=== PATIENT | female | born 1930 | race Caucasian/White ===

== ENCOUNTER 2019-04-08 13:48 | Outpatient (CLI) | payer MEDICARE ==
[~2019-04-08 13:48] MED LIST: ALLOPURINOL100 MG PO; ANTIVERT 25MG25 MG PO; COUMADIN3 MG PO; FUROSEMIDE40 MG PO; KAYEXALATE15 GM/60 M PO; LIPITOR 10MG10 MG PO; LIPOFLAVONOID PO; LOVENOX100 MG/ML SC; SYNTHROID0.1 MG PO; WARFARIN2 MG PO; ZEMPLAR1 MCG PO
[2019-04-08 14:37] LABS: HEMATOCRIT 29.1 % (37.0-47.0)
[2019-04-08 15:32] VITALS: BP 124/42; PULSE 80; TEMP 98.1
[2019-04-08] MEDS ORDERED: LASIX 20MG TABL20 MG PO (15:39)
[2019-04-08] MEDS ORDERED: SYNTHROID 0.10.15 MG PO (15:39)
[2019-04-08] MEDS ORDERED: ZEMPLAR2 MCG PO (15:40)
[2019-04-08] MEDS ORDERED: LIP PO (15:41)
[2019-04-08] MEDS ORDERED: ANTIVERT 25MG25 MG PO (15:42)
[2019-04-08] MEDS ORDERED: ELIQUIS 2.5 PO (15:51)
[2019-04-08] MEDS ORDERED: NATURAL IRON65 MG (15:52)
[2019-04-08] MEDS ORDERED: ZYLOPRIM 100MG100 MG PO (15:52)
[2019-04-08] MEDS ORDERED: TURMERIC500 MG PO (15:53)
== END 2019-04-08 16:30 | disposition home or self-care (01) ==
LOC: EUO 13:48
PROVIDERS: Internal Medicine Nephrology
DX: N18.4 Chronic kidney disease, stage 4 (severe) (principal); D63.1 Anemia in chronic kidney disease
CPT/HCPCS: J0881

== ENCOUNTER 2019-05-06 09:46 | Outpatient (CLI) | payer MEDICARE ==
[~2019-05-06] VITALS: Ht 157.5 cm; Wt 64.0 kg
[~2019-05-06 09:46] MED LIST changes: +ELIQUIS 2.5 PO; +LASIX 20MG TABL20 MG PO; +LIP PO; +NATURAL IRON65 MG; +SYNTHROID 0.10.15 MG PO; +TURMERIC500 MG PO; +ZEMPLAR2 MCG PO; +ZYLOPRIM 100MG100 MG PO
[2019-05-06 10:03] VITALS: BP 130/65; PULSE 88; TEMP 97.6
[2019-05-06 10:19] LABS: HEMATOCRIT 31.2 % (37.0-47.0); HEMOGLOBIN 9.6 g/dl (12.5-16.0)
== END 2019-05-06 11:00 | disposition home or self-care (01) ==
LOC: EUO 09:46
PROVIDERS: Internal Medicine Nephrology
DX: N18.4 Chronic kidney disease, stage 4 (severe) (principal); D63.1 Anemia in chronic kidney disease; Z79.899 Other long term (current) drug therapy
CPT/HCPCS: J0881

== ENCOUNTER 2019-06-03 10:24 | Outpatient (CLI) | payer MEDICARE ==
[~2019-06-03] VITALS: Ht 157.5 cm; Wt 76.0 kg
[2019-06-03 11:29] LABS: HEMATOCRIT 32.4 % (37.0-47.0)
[2019-06-03 11:57] VITALS: BP 119/80; PULSE 95; TEMP 97.9
== END 2019-06-03 12:45 | disposition home or self-care (01) ==
LOC: EUO 10:24
PROVIDERS: Internal Medicine Nephrology
DX: N18.4 Chronic kidney disease, stage 4 (severe) (principal); D63.1 Anemia in chronic kidney disease
CPT/HCPCS: J0881

== ENCOUNTER 2019-07-06 15:57 | Inpatient (IN) | payer MEDICARE ==
[~2019-07-06] VITALS: Ht 157.5 cm; Wt 66.2 kg
[2019-07-06] MEDS ORDERED: SYNTHROID0.125 MG/T PO (17:28)
[2019-07-06] MEDS ORDERED: LASIX 40MG TABL40 MG PO ×3 (17:30→17:31)
--- NOTE | 2019-07-06 18:17 | NUR ---
Patient arrived to floor a direct admit from Dr. Calderon office. Arrived via private vehicle accompanied by daughter. Was assisted to bed with one assist. Dr. Calderon called and notified that patient was here, received orders, med rec complete and ready for review. Daugher will bring 2 medications from home tomorrow. Call light and personal items are within reach.
[2019-07-06 18:49] LABS: BASO % 0.2 % (0.0-2.0); EOS # 0.4 (0.0-0.7); EOS % 6.3 % (0-4.0); GRAN # 4.3 (1.4-6.5); GRAN % 72.5 % (42.2-75.2); LYMPH # 0.9 (1.2-3.4); LYMPH % 15.5 % (20.0-51.0); MEAN CELL VOLUME 101 fl (80.0-100.0); MEAN CORPUSCULAR HGB CONC 31 g/dl (33.0-37.0); MEAN PLATELET VOLUME 12.1 fl (7.4-10.4); MONO # 0.3 (0.1-0.6); MONO % 5.2 % (1.7-9.3); PLATELET COUNT 114 K/mm3 (130-400); RED BLOOD COUNT 2.99 M/mm3 (4.10-5.30); REDCELL DISTRIBUTION WIDTH-CV 17.4 % (11.5-14.5)
[2019-07-06 18:50] LABS: HEMATOCRIT 30.2 % (37.0-47.0); HEMOGLOBIN 9.3 g/dl (12.5-16.0); MEAN CORPUSCULAR HEMOGLOBIN 31 pg (27.0-31.0)
[2019-07-06 18:52] VITALS: BP 125/56; PULSE 80; TEMP 98
[2019-07-06 18:54] LABS: INR 1.4 (0.8-3.0); PROTHROMBIN TIME 16.4 SECONDS (9.7-12.8)
--- NOTE | 2019-07-06 20:00 | NUR ---
Received report from DILAN Tyler. Assessment complete. Alert and oriented. PT c/o pain to BLE with movement, no pain at rest. BLE with dressing in place. Coban and gauze roll changed noted with dried scant to small amount of drainage. Lenora boot left in place and unable to obtain wound culture at this time. Replaced gauze and coban to BLE. Coello catheter in place, secured, draining clear yellow urine. Hearing aid in place, removed during sleep and placed in container at bedside. Bumex gtt infusing at 0.5ml/hr. Meds administered as ordered. Call light within reach. Needs attended too.
[2019-07-06 20:58] VITALS: BP 107/60; PULSE 73; TEMP 98
[2019-07-06 21:20] LABS: CREATININE, serum 3.49 (0.52-1.25); FRACTIONAL EXCRETION OF NA+ 4.6 %
[2019-07-06 23:20] VITALS: BP 98/58; PULSE 90; TEMP 97.6
[2019-07-07 03:14] VITALS: BP 116/92; PULSE 85; TEMP 97.7
--- NOTE | 2019-07-07 06:03 | NUR ---
Meds administered as ordered. Had no complaints. Needs attended too. Call light within reach.
[2019-07-07 07:00] LABS: ALBUMIN 3.1 gm/dL (3.5-5.0); CALCIUM 9.3 mg/dL (8.4-10.2); CREATININE, serum 3.5 (0.52-1.25); PHOSPHOROUS 5.9 mg/dL (2.5-4.5); POTASSIUM 4.1 mmol/L (3.4-5.0)
--- NOTE | 2019-07-07 07:16 | NUR ---
Report given to DILAN Pacheco.
[2019-07-07 07:33] VITALS: BP 106/44; PULSE 90; TEMP 97.9
--- NOTE | 2019-07-07 08:24 | NUR ---
Assesssment complete. Patient sitting at side of bed for breakfast. She had no complaints of pain or discomfort. Coello is patent draining light yellow urine. No further needs were expressed at this time. Call light is within reach.
--- NOTE | 2019-07-07 10:05 | NUR ---
Initial visit; Patient thanked Preform Plate Maker for looking in on her and offering God's blessings.
--- NOTE | 2019-07-07 11:08 | NUR ---
Bilateral lower leg vito boots unwrapped and removed. Nonadherent lolly applied to uler on right leg. Both legs re-wrapped with lolly and carlo wrap. Patient tolerated well. Minimal pain while swabbing ulcer for wound culture. Daughter was present for this process.
[2019-07-07 12:16] VITALS: BP 105/53; PULSE 86; TEMP 97.7
[2019-07-07 15:27] VITALS: BP 108/58; PULSE 69; TEMP 97.9
--- NOTE | 2019-07-07 17:37 | NUR ---
Welt Edge Rounder met with patient to discuss discharge planning. Patient lives alone in [place] and has home health services through [facility]. Patient obtains medications from [facility] in [place] and uses a walker at home. Patient states her daughter, Tammie is DPOA-HC, although SW did not locate Advance Directives in EMR. SW contacted Cydni from [employer] and also faxed updates. SW to continue to follow to ensure safe discharge.
--- NOTE | 2019-07-07 18:33 | NUR ---
Patient has had an uneventful day. Patient rested in bed and napped most of the day. Daughter is currently at the bedside with her for dinner. She has had no complaints of pain or discomfort throughout the day. Her call light is within reach.
[2019-07-07 19:41] VITALS: BP 88/61; PULSE 83; TEMP 97.5
--- NOTE | 2019-07-07 20:00 | NUR ---
Received report from DILAN Pacheco and DILAN Armendariz. Assessment complete. Alert and oriented. Denies any pain at this time. had some discomfort to rt heel, elevated both heels with pillows placed under legs. Coello catheter in place, secured to RL, draining clear yellow urine. Swelling and redness to BLE with dressing in place. Needs met. Call light within reach.
[2019-07-07 23:11] VITALS: BP 105/57; PULSE 92; TEMP 97.8
[2019-07-08 04:56] VITALS: BP 110/50; PULSE 87; TEMP 98.5
--- NOTE | 2019-07-08 05:41 | NUR ---
Pt had an uneventful night. No complaints were made. Slept through the night. Call light within reach.
--- NOTE | 2019-07-08 07:08 | NUR ---
Report given to DILAN Pacheco and DILAN Armendariz.
[2019-07-08 07:41] LABS: ALBUMIN 3.1 gm/dL (3.5-5.0); CALCIUM 9.4 mg/dL (8.4-10.2); CREATININE, serum 3.63 (0.52-1.25); PHOSPHOROUS 5.9 mg/dL (2.5-4.5)
[2019-07-08 08:11] VITALS: BP 126/65; PULSE 102; TEMP 97.9
--- NOTE | 2019-07-08 10:26 | NUR ---
Patient sitting in recliner for breakfast. Stated she felt a little short of breath. Upon assessment her saturation was at 88-90%. 1L of O2 was applied for comfort and patient felt better after knowing her saturation had improved with the oxygen. Will notify Dr. Calderon. Other than that the patient states that she is comfortable and denies pain at this time. No further needs were expressed from the patient. Call light is withing reach.
[2019-07-08 11:14] VITALS: BP 105/68; PULSE 84; TEMP 98.4
[2019-07-08 15:52] VITALS: BP 115/75; PULSE 64; TEMP 97.1
--- NOTE | 2019-07-08 18:09 | NUR ---
Patient had a good day. Her SOB has not been a problem since the oxygen was administered. She has denied pain and shortness of breath since. Her O2 sats have been within normal limits at 96-100%. Coello is patent and draining clear yellow urine. Patient is very aware of her fluid restriction. No further needs were expressed. Call light is within reach.
[2019-07-08 19:16] VITALS: BP 130/64; PULSE 82; TEMP 97.3
--- NOTE | 2019-07-08 20:00 | NUR ---
Received report from DILAN Armendariz. Assessment complete. Alert and oriented. Denies any pain or discomfort at this time. Denies SOB. On 1LO2 NC, SPO2 98%. Meds administered as ordered. BLE wrapped in gauze and CARMELO wrap. Heels elevated on pillow. Coello catheter secured to RL, draining clear yellow urine. IV to RF intact with bumex infusing, dressing CDI. Hearing aid placed on bedside table in red container. Needs met. Call light within reach.
[2019-07-09 00:51] VITALS: BP 119/64; PULSE 81; TEMP 97.5
[2019-07-09 03:45] VITALS: BP 111/48; PULSE 89; TEMP 97.5
--- NOTE | 2019-07-09 05:09 | NUR ---
Pt uneventful during this shift. No complaints made. Coello catheter bag emptied. Bumex infusing at 5ml/hr. Heels elevated on pillow. Call light within reach. Personal items at bedside.
--- NOTE | 2019-07-09 07:29 | NUR ---
Report given to DILAN Asencio.
[2019-07-09 07:39] LABS: ALBUMIN 3.2 gm/dL (3.5-5.0); CALCIUM 9.4 mg/dL (8.4-10.2); CREATININE, serum 3.67 (0.52-1.25); PHOSPHOROUS 6.1 mg/dL (2.5-4.5)
[2019-07-09 07:51] VITALS: BP 119/67; PULSE 92; TEMP 97.7
[2019-07-09 12:39] VITALS: BP 114/50; PULSE 87; TEMP 97.6
[2019-07-09 15:26] VITALS: BP 106/57; PULSE 86; TEMP 97.5
--- NOTE | 2019-07-09 18:24 | NUR ---
Patient resting in bed. A&O, TE-MOAK. VSS. IV CDI, fluids infusing. Coello dependent drainage, clear yellow. Bilateral legs wrapped in gauze and carlo wrap. No further needs expressed from patient. Call light within reach. Bed alarm on
--- NOTE | 2019-07-09 22:27 | NUR ---
Pt doing well. Sleeping in bed. Alert and seems oriented this shift. Has Bumex gtt at 5. Is on 3L of O2. Has BLE edema. Fistula to L forearm, palpable and audible. Does not seem to be in pain. Call light within reach, will continue to monitor
[2019-07-09 22:33] VITALS: BP 122/57; PULSE 55; TEMP 97.6
--- NOTE | 2019-07-10 01:24 | NUR ---
Pt resting in bed comfortably. Doxy infused with no isses. Bumex drip at 5. Call light within reach, will continue to monitor
[2019-07-10 05:11] VITALS: BP 110/44; PULSE 82; TEMP 97.5
--- NOTE | 2019-07-10 06:41 | NUR ---
Pt has 4 bed sores to bottom. Right buttock cheek has a stage 2 ulcer. Left buttock has stage 1 ulcer (nonblanchable). Sacral/coccyx area has 3 open ulcers. 2 ulcers are stage 3, 1 is stage 4. All ulcers were cleaned with NS. Barrier cream applied. 2 mepilex dressings were applied. will notify oncoming nurse
--- NOTE | 2019-07-10 06:46 | NUR ---
Patient was wet and bed pads were satured in urine. Patient does have arellano. When changing patient, does not appear to be leaking. Patient was cleaned and bed was changed. Repositioned to left side with pillow between legs. Denies needs at this time. Call light within reach, will continue to monitor
[2019-07-10 07:51] LABS: ALBUMIN 3.1 gm/dL (3.5-5.0); CALCIUM 9.4 mg/dL (8.4-10.2); CREATININE, serum 3.66 (0.52-1.25); PHOSPHOROUS 6.3 mg/dL (2.5-4.5); POTASSIUM 3.8 mmol/L (3.4-5.0)
[2019-07-10 08:55] VITALS: BP 124/62; PULSE 86; TEMP 98.1
--- NOTE | 2019-07-10 09:02 | NUR ---
PATIENT ASSESSMENT COMPLETED SHE DENIES ANY PAIN. ASSISTED TO THE SIDE OF THE BED FOR BREAKFAST. NO OTHER NEEDS AT THIS TIME. CATHETER IN PLACE
[2019-07-10 12:20] VITALS: BP 111/62; PULSE 83; TEMP 97.6
[2019-07-10 13:51] LABS: GLUCOSE,PLEURAL FLUID 92 mg/dL; TOTAL PROTEIN,PLEURAL FLUID 2.1 gm/dL
[2019-07-10 13:52] LABS: PLEURAL FLUID RBC 1000 /mm3 (0-0); PLEURAL FLUID WBC 3108 /mm3
[2019-07-10 13:57] LABS: PLEURAL FLUID COLOR YELLOW
[2019-07-10 13:58] LABS: PLEURAL FLUID APPEARANCE CLEAR
[2019-07-10 15:49] VITALS: BP 104/59; PULSE 85; TEMP 97.4
--- NOTE | 2019-07-10 16:15 | NUR ---
PATIENT TO DIALYSIS VIA WHEELCHAIR.
[2019-07-10 19:28] LABS: HEPATITIS B SURFACE ANTIBODY <2.0 (()); HEPATITIS B SURFACE ANTIGEN Negative (Negative); HEPATITIS C VIRUS ANTIBODY Negative (Negative)
[2019-07-10 19:42] VITALS: BP 112/83; PULSE 103; TEMP 97.8
--- NOTE | 2019-07-10 19:51 | NUR ---
PATIENT RETURNS TO ROOM 356 FROM DIALYSIS
--- NOTE | 2019-07-10 19:52 | NUR ---
Pt returned from HD at approximately 1930 via wc. sitting up on side of bed eating dinner.
--- NOTE | 2019-07-10 20:00 | NUR ---
Received report from DILAN Mantilla. Assessment complete. Pt returned from dialysis via at approx 1930. Sat on side of bed eating dinner. Denies any pain or discomfort at this time. Denies SOB. LFA fistula with bruit and thrill, ecchymosis, dressing in place. IV to RF intact, flushed, dressing CDI, meds infusing. Coello catheter in place, secured to LL, draining clear yellow urine. Pt req to use O2 NC PRN, set at 1L, SPO2 96%, NC at bedside, denies SOB at this time. BLE wrapped in gauze and CARMELO, no drainage noted. Heels elevated on pillow. Hearing aid and glasses at bedside. Needs attended too. Call light within reach.
[2019-07-10 23:10] VITALS: BP 103/57; PULSE 56; TEMP 97.3
[2019-07-11 04:00] VITALS: BP 123/58; PULSE 88; TEMP 97.7
--- NOTE | 2019-07-11 05:30 | NUR ---
Pt uneventful during this shift. No complaints made. Needs attended too. Coello drained. Call light within reach. Meds given as ordered.
--- NOTE | 2019-07-11 06:44 | NUR ---
Report given to DILAN Mantilla.
[2019-07-11 08:05] LABS: ALBUMIN 2.7 gm/dL (3.5-5.0); CALCIUM 9.3 mg/dL (8.4-10.2); CREATININE, serum 2.8 (0.52-1.25); PHOSPHOROUS 4.4 mg/dL (2.5-4.5); POTASSIUM 3.6 mmol/L (3.4-5.0)
[2019-07-11 08:10] VITALS: BP 101/61; PULSE 87; TEMP 97.5
--- NOTE | 2019-07-11 09:45 | NUR ---
PATIENT ASSESSMENT COMPLETED. SHE IS REPOSITIONED ON HER LEFT SIDE. BOTH LEGS ARE WRAPPED WITH KERLIX AND CARMELO BANDAGES. THERE IS ONE OPEN AREA THAT DRAINED BLOODY. AREA IS CLEANED WITH SALINE PRIOR TO REWRAPPED. DRESSINGS TO HER BUTTOCK ARE ALSO REMOVED. DAUGHTER AT BEDSIDE WHILE ALL OF THIS OCCURRED AND SHE HAS EXAMINED, SHE WAS AWARE OF SKIN PRIOR TO ADMISSION. ALSO JOEL REFUSED TO TAKE A SHOWER TODAY.
[2019-07-11 11:56] LABS: PLEURAL FLUID RBC 0 /mm3 (0-0); PLEURAL FLUID WBC 276 /mm3
[2019-07-11 11:58] LABS: PLEURAL FLUID APPEARANCE CLEAR; PLEURAL FLUID COLOR YELLOW
[2019-07-11 12:00] LABS: GLUCOSE,PLEURAL FLUID 91 mg/dL; TOTAL PROTEIN,PLEURAL FLUID 2.1 gm/dL
[2019-07-11 12:07] VITALS: BP 100/54; BP 92/48; PULSE 58; TEMP 97.6
[2019-07-11 17:03] VITALS: BP 105/59; PULSE 82; TEMP 97.9
--- NOTE | 2019-07-11 20:00 | NUR ---
Received report from DILAN Mantilla. Assessment complete. Alert and oriented. Denies any pain or discomfort. Denies SOB. On 1LO2 NC. IV to RFA intact with IV meds infusing. Coello catheter in place secured to LL, draining clear yellow urine. LF fistula with bruit and thrill, ecchymotic. Meds administered as ordered. Needs attended too. Personal items at bedside. Call light within reach.
[2019-07-11 20:34] VITALS: BP 111/49; PULSE 71; TEMP 97.8
[2019-07-12 01:09] VITALS: BP 114/48; PULSE 78; TEMP 98
[2019-07-12 05:47] VITALS: BP 109/67; PULSE 77; TEMP 97.5
--- NOTE | 2019-07-12 06:48 | NUR ---
Pt slept through most of the night. Needs attended too. Assisted pt to bsc, had BM, mepiplex in place.call light within reach.
--- NOTE | 2019-07-12 07:23 | NUR ---
Report given to DILAN Trammell.
[2019-07-12 07:38] LABS: ALBUMIN 3.1 gm/dL (3.5-5.0); CALCIUM 9.8 mg/dL (8.4-10.2); CREATININE, serum 3.06 (0.52-1.25); PHOSPHOROUS 4.5 mg/dL (2.5-4.5); POTASSIUM 3.8 mmol/L (3.4-5.0)
[2019-07-12 12:45] VITALS: BP 105/43; PULSE 88; TEMP 97.8
--- NOTE | 2019-07-12 14:53 | NUR ---
Supervisor Welding Equipment Repairer contacted Tara at [facility] and also faxed updates. SW met with patient later in the afternoon to review PT recommendation for SNF upon discharge. Patient declines and states she is going home. ELEONORA contacted patient's daughter, Tammie (ph#[phone]) to review discharge plan. Tammie states she agrees patient would benefit from SNF, but patient will refuse and has refused SNF placement in the past. Tammie reports patient can make her own decisions at this point. Tammie reports she is DPOA-HC and that patient has a living will. Tammie states she will bring them in for SW to make copies. Tammie also reports some concerns about [facility]. SW to continue to follow.
--- NOTE | 2019-07-12 16:25 | NUR ---
Patient's daughter, Tammie provided SW copy of patient's Living Will and DPOA-HC. SW placed in chart.
[2019-07-12 17:22] VITALS: BP 100/42; PULSE 69; TEMP 97.9
--- NOTE | 2019-07-12 19:35 | NUR ---
Received report from DILAN Trammell.
[2019-07-12 20:13] VITALS: BP 102/45; PULSE 77; TEMP 98.4
--- NOTE | 2019-07-12 21:14 | NUR ---
Assessment complete. Pt resting comfortably in bed. Alert and oriented. Denies any pain or discomfort at this time, denies SOB. On 1L02 NC. Coello catheter in place secured to LLm, draining clear yellow urine. BLE edema, decreased redness, wrapped in gauze and CARMELO banage to up to rodriguez. Feet elevated on pillow. INT to RF intact, flushed, dressing CDI. LFA fistula with bruit and thrill, dressing in place, ecchymosis, no swelling. Hearing aids and other personal items placed at bedside. Needs met. Call light within reach.
[2019-07-13 00:19] VITALS: BP 106/51; PULSE 83; TEMP 98.5
[2019-07-13 04:49] VITALS: BP 117/62; PULSE 47; TEMP 98.5
--- NOTE | 2019-07-13 05:33 | NUR ---
Pt uneventfu during this shift. Slept thru the night without any complaints. Needs met. Call light within reach.
--- NOTE | 2019-07-13 06:56 | NUR ---
appears to be sleeping, in bed with lights off, bedside shift report received from DILAN Herzog
--- NOTE | 2019-07-13 07:03 | NUR ---
Report given to DILAN Manitlla.
[2019-07-13 08:11] LABS: ALBUMIN 2.8 gm/dL (3.5-5.0); CALCIUM 9.8 mg/dL (8.4-10.2); CREATININE, serum 3.11 (0.52-1.25); PHOSPHOROUS 4.8 mg/dL (2.5-4.5); POTASSIUM 3.8 mmol/L (3.4-5.0)
--- NOTE | 2019-07-13 08:15 | NUR ---
awake resting in bed, full assessment completed, see interventions for further info, assisted to sitting up on side of bed for breakfast, becomes dyspneic on exertionO2 on, bilateral lower extrmities are wrapped with gauze and carlo wrap and only minimal edema, has brusing to left arm and dressing to fistula,
[2019-07-13 08:45] VITALS: BP 109/44; PULSE 85; TEMP 99.2
--- NOTE | 2019-07-13 08:52 | NUR ---
physical therapy in to work with patient
--- NOTE | 2019-07-13 11:20 | NUR ---
Physical therapy in and assisted her out of bed and up into recliner, carlo wrap dressings to bilateral lower extremities removed, has 1cm area covered with telfa on right inner calf that is open but starting to become dried, has minial edema to lower extrmities, will leave open until Dr Calderon returns to assess, daughter at bedside, patient denies needs
[2019-07-13 12:00] VITALS: BP 111/63; PULSE 91; TEMP 98.1
--- NOTE | 2019-07-13 12:15 | NUR ---
Dr Calderon in and assessed lower extremities, will leave them unwrapped at this time
--- NOTE | 2019-07-13 13:00 | NUR ---
sitting up in chair eating lunch, attempted to start IV antibiotic and it is painful and leaking, will restart when lunch is finished
--- NOTE | 2019-07-13 13:04 | NUR ---
sitting up in chair eating lunch
--- NOTE | 2019-07-13 13:30 | NUR ---
INT discontinued and INT started in right hand
--- NOTE | 2019-07-13 14:55 | NUR ---
assisted up to bedside commode to try and have bowel movement, then back into bed and vascular lab in to complete echo
[2019-07-13 16:10] VITALS: BP 104/39; PULSE 100; TEMP 97.8
--- NOTE | 2019-07-13 18:50 | NUR ---
assited to sitting up on side of bed to eat supper, bedside shift report given to DILAN Tanner
[2019-07-13 19:13] VITALS: BP 145/37; PULSE 94; TEMP 98.1
[2019-07-14 00:01] VITALS: BP 102/49; PULSE 60; TEMP 98
--- NOTE | 2019-07-14 03:18 | NUR ---
Patient noted to have +2-3 edema to bilateral lower legs and bilateral upper arms. Fistula noted to left forearm. INT to right wrist. Wears 2L oxygen via nasal cannula. Bandaids present from bilateral thoracentesis. CDI. Multiple pressure ulcers noted to coccyx. Old dressing removed, site cleansed, and new dressing applied. Repositioning q2 and gege-care completed per staff. Continues on antibiotics per orders. Patient to have dialysis today. Will continue to monitor.
[2019-07-14 03:37] VITALS: BP 126/46; PULSE 80; TEMP 98
--- NOTE | 2019-07-14 08:00 | NUR ---
Patient resting in bedside recliner at this time, daughter at bedside. Patient is eating breakfast, denies pain or needs. Call light within reach.
[2019-07-14 08:04] VITALS: BP 107/56; PULSE 81; TEMP 97.2
--- NOTE | 2019-07-14 11:30 | NUR ---
Patient to dialysis via bed at this time.
[2019-07-14 12:15] LABS: BASO % 0.3 % (0.0-2.0); EOS # 0.5 (0.0-0.7); EOS % 7.6 % (0-4.0); GRAN # 4.7 (1.4-6.5); GRAN % 70.5 % (42.2-75.2); LYMPH % 15.1 % (20.0-51.0); MEAN CELL VOLUME 103 fl (80.0-100.0); MEAN CORPUSCULAR HGB CONC 31 g/dl (33.0-37.0); MEAN PLATELET VOLUME 11.7 fl (7.4-10.4); MONO # 0.4 (0.1-0.6); MONO % 6.1 % (1.7-9.3); PLATELET COUNT 106 K/mm3 (130-400); RED BLOOD COUNT 3.03 M/mm3 (4.10-5.30); REDCELL DISTRIBUTION WIDTH-CV 17.6 % (11.5-14.5)
[2019-07-14 12:21] LABS: HEMATOCRIT 31.3 % (37.0-47.0); HEMOGLOBIN 9.6 g/dl (12.5-16.0); MEAN CORPUSCULAR HEMOGLOBIN 32 pg (27.0-31.0)
[2019-07-14 12:22] LABS: CALCIUM 9.8 mg/dL (8.4-10.2); CREATININE, serum 2.6 (0.52-1.25); PHOSPHOROUS 4.3 mg/dL (2.5-4.5); POTASSIUM 3.7 mmol/L (3.4-5.0)
--- NOTE | 2019-07-14 14:00 | NUR ---
Patient returned from dialysis via bed. Patient is alert and oriented while awake, but is very tired. Patient refuses lunch, states she just wants to sleep.
[2019-07-14 16:35] VITALS: BP 104/55; PULSE 86; TEMP 98.2
--- NOTE | 2019-07-14 17:09 | NUR ---
Clinical Appeals Reviewer met again with patient and patient's daughters, Tammie and Arlyn Segundo to review PT/OT recommendation for SNF. SW discussed patient safety and care needs. Tammie and Arlyn Segundo expressed understanding. Patient states she is open to skilled stay for therapy. SW reviewed Medicare.gov list of SNF's and patient's daughters will follow up with SW on a choice. SW to continue to follow to ensure safe discharge.
[2019-07-14 19:34] VITALS: BP 101/53; PULSE 78; TEMP 97.9
--- NOTE | 2019-07-14 21:00 | NUR ---
PT RESTING IN BED. O2 2LN/C/ NO DYSPNEA AT REST. KEEPS HOB ELEVATED. PLAN FOR THORACENTESIS TOMORROW. PT AWARE OF PLAN. PT VERY SHISHMAREF IRA. SPEECH DIFFICULT TO UNDERSTAND. NO NEEDS AT THIS TIME.
[2019-07-14 22:55] VITALS: BP 103/50; PULSE 83; TEMP 98.6
[2019-07-15 04:40] VITALS: BP 105/55; PULSE 83; TEMP 98.2
--- NOTE | 2019-07-15 06:27 | NUR ---
PT HAS RESTED THROUGH THE SHIFT WITH STATUS UNCHANGED. CONTINUES LOOSE NONPRODUCTIVE COUGH.
[2019-07-15 07:02] VITALS: BP 112/47; PULSE 86; TEMP 98.1
[2019-07-15 07:32] LABS: ALBUMIN 2.9 gm/dL (3.5-5.0); CALCIUM 9.9 mg/dL (8.4-10.2); CREATININE, serum 2.51 (0.52-1.25); PHOSPHOROUS 4.8 mg/dL (2.5-4.5)
--- NOTE | 2019-07-15 08:00 | NUR ---
Patient is alert and oriented x 3. She is able to verbalize needs and wants. Denies any pain or discomfort. Skin w/d. Noted to be scaly and itchy in places. Lungs diminshed in bases; resp even/unlabored. patient reports cough productive with white/sticky phlegm. 02 on at 2L/NC. HR strong/regular. Abd soft with bowel sounds x 4 quads. PPP. Noted 1+ pedal edema bilaterally. Heels reddened and soft. No open areas noted. Lotion applied. Patient has state 2 on coccyx area. Area cleansed and new dressing applied. Coello catheter in place with clear/yellow urine. Patient had soft blackish medium stool. Consent signed for AM thoracentisis. AM medications given. No other needs at this time. Call light in place; and fall percautions are on
--- NOTE | 2019-07-15 08:06 | NUR ---
Eliquis on hold due to throacentsis.
--- NOTE | 2019-07-15 09:45 | NUR ---
Patient off the floor at this time for thoracentsis.
--- NOTE | 2019-07-15 10:15 | NUR ---
Patient has returned from thoracentsis; they took 750cc off the left lung.
[2019-07-15 12:51] VITALS: BP 115/41; PULSE 76; TEMP 97.4
--- NOTE | 2019-07-15 15:02 | NUR ---
Called Dr. Freed regarding cardiology consult. He stated that he is unable to see the patient for the next few days and had asked to Dr. Coley to see patient. Dr. Coley called to ask when he would be seeing patient. He will be in today after clinic. Daughter will be made aware of Dr. Coley's plan.
--- NOTE | 2019-07-15 15:38 | NUR ---
Melt Down Furnace Operator met with patient and patient's daughter, Tammie to follow up on choice for SNF referrals. Patient and Tammie expressed they want to explore the three facilities in [place] as patient will need dialysis upon discharge and appointments will be in [place]. [facility], [facility], and [facility] and faxed referrals. ELEONORA provided each facility with Tammie's phone number and asked they call Tammie per her request. SW to continue to follow.
--- NOTE | 2019-07-15 16:26 | NUR ---
Car Mechanic Helper was contacted by Priscilla at [facility] who advised they can accept referral if patient has wound care follow up appointment set up upon discharge. Priscilla also requested specific wound care notes. SW to continue to follow.
[2019-07-15 17:57] VITALS: BP 106/75; PULSE 80; TEMP 97.6
--- NOTE | 2019-07-15 17:58 | NUR ---
Family in room waiting for Dr. Coley to arrive. Patient verbalizes no needs. PM medications given. Dressing to coccyx changed. Call light in place
--- NOTE | 2019-07-15 20:00 | NUR ---
Received report from DILAN Torrez. Assessment complete. Alert and oriented. Pt resting in bed. Meds administered. On 2LO2 via NC. Denies SOB. Denies any pain or discomfort at this time. Coello catheter intact, secured to RL, draining clear yellow urine. Needs met. Call light within reach.
[2019-07-15 20:25] VITALS: BP 100/44; PULSE 78; TEMP 97.4
[2019-07-15 23:36] VITALS: BP 92/42; PULSE 69; TEMP 98.2
[2019-07-16 03:24] VITALS: BP 98/51; PULSE 76; TEMP 98.4
--- NOTE | 2019-07-16 05:45 | NUR ---
Pt slept through the night without any complaints. Meds administered as ordered. Call light within reach.
[2019-07-16 07:11] LABS: ALBUMIN 2.7 gm/dL (3.5-5.0); CALCIUM 10.1 mg/dL (8.4-10.2); CREATININE, serum 2.77 (0.52-1.25); PHOSPHOROUS 5.3 mg/dL (2.5-4.5)
--- NOTE | 2019-07-16 07:13 | NUR ---
Report given to DILAN Torrez.
[2019-07-16 07:24] VITALS: BP 104/40; PULSE 76; TEMP 98.1
--- NOTE | 2019-07-16 09:15 | NUR ---
Patient up to the commode this AM. Had a small black soft stool. AM cares completed at this time. Patient ambulates with walker and 02 at 2L/NC. Noted slight shortness of breath after ambulation to the chair. Patient is alert and oriented x 3. Denies any pain at this time. Skin w/d Color pale pink. Lungs diminshed in bases with resp even/unlabored. Abd soft with bowel sounds x 4 quads. PPP. Bilateral lower extremities noted to be dk pink; minimal edema noted. Lotion applied as per orders. No scaling noted. Coccyx with stage II ulcer and noted excoriation around the area. Area cleansed and dressing applied. Patient sitting in chair at this time. Denies any needs
[2019-07-16 11:10] VITALS: BP 105/48; PULSE 75; TEMP 97.7
--- NOTE | 2019-07-16 16:45 | NUR ---
Field Artillery Officer faxed updates to [facility], [facility], and [facility]. ELEONORA was contacted by Dakotah at [facility] who is reviewing referral. ELEONORA was contacted by Priscilla who advised they were not able to get prior authorization for this weekend. SW to continue to follow.
[2019-07-16 17:00] VITALS: BP 121/48; PULSE 81; TEMP 97.1
--- NOTE | 2019-07-16 18:41 | NUR ---
Patient returned from dialysis this PM. DILAN Muniz called to report that she attempted dialysis but it failed due dialyis catheter failed and an hematoma has developed. This hematoma is from the site of the fistula to mid upper arm. Patient c/o significant pain with movement. Ice pack applied per Dr. Calderon recommendation to DILAN Muniz. Daughter, Tammie called to make aware of dialysis failure and the large hematoma. Questions answered for the daughter. Patient repositioned in bed and got ready for supper
--- NOTE | 2019-07-16 19:20 | NUR ---
Seen patient awake on bed. Noted to have hematoma on left upper arm due to fistula. Patient complains of pain on the fistula site. With O2 at 2lpm via NC, with INt on right hand and with IFC. Will continue to monitor and await for Dr. Calderon order for pain.
--- NOTE | 2019-07-16 20:00 | NUR ---
Dr. Calderon called and ordered Tylenol PRN for pain and ice pack to be put on the side of the fistula.
[2019-07-16 20:21] VITALS: BP 106/40; PULSE 86; TEMP 97.6
[2019-07-16 23:40] VITALS: BP 108/38; PULSE 79; TEMP 97.5
[2019-07-17] VITALS (7 sets, daily range): BP systolic 101–126; BP diastolic 35–48; PULSE 71–80; TEMP 97.3–97.8
--- NOTE | 2019-07-17 06:28 | NUR ---
Patient states the pain lessen already. Ice pack still in place on the side of her fistula. No other complains made. Will endorse to day shift nurse.
--- NOTE | 2019-07-17 13:00 | NUR ---
Right sided thoracentesis performed at this time. 1000ml of fluid removed. Patient tolerated well.
--- NOTE | 2019-07-17 14:30 | NUR ---
Patient tolerated thoracentesis well. O2 sats have been stable as well as BP. No complaints of pain or discomfort at this time other than the pain in her arm from her infultrated fistula. Patient is now resting in bed.
--- NOTE | 2019-07-17 16:51 | NUR ---
Patient has been stable since thoracentesis. She is now sleeping in bed. No further needs were expressed. Call light within reach.
--- NOTE | 2019-07-17 18:36 | NUR ---
Noting change in urine color draining from arellano. Was pale hazy yellow this morning, is now a brown color, patent, still draining well.
--- NOTE | 2019-07-17 19:00 | NUR ---
Received report from day shift nurseKala. Seen patient awake sitting on bed. Left forearm with fistula still has hematoma but patient denies pain. With INT on right hand. On O2 at 2lpm via NC. Will continue to monitor.
[2019-07-18] VITALS (7 sets, daily range): BP systolic 98–115; BP diastolic 41–93; PULSE 51–86; TEMP 97.6–98.8
--- NOTE | 2019-07-18 05:25 | NUR ---
Patient had an uneventful night. Denies any pain on her fistula site. Ice pack applied as needed. Call light within reach. Will endorse to day shift nurse.
--- NOTE | 2019-07-18 08:41 | NUR ---
Assessment complete. Patient sleeping in bed. IV site CD&I. Patient denies pain at this time. Bilateral lower extremities are still swollen, red and scaling. Coello is patent, draining hazy yellow urine. No further needs were expressed at this time. Call light is within reach.
--- NOTE | 2019-07-18 10:56 | NUR ---
Coello patent and draining, blood sediment noted, flushed. Will continue to monitor.
--- NOTE | 2019-07-18 16:21 | NUR ---
Patient has rested most of the day. She sits up for meals and I rotate which sie she lays on to keep her off her bottom. She did complain that the sore was bothering her as well as her infiltrated fistula site, PRN tylenol was provided. Once situated in bed, patient is comfortable and content. Patient and daughter are both aware of the POC. No furter needs at this time. Call light is within reach.
--- NOTE | 2019-07-18 19:55 | NUR ---
Patient report received from DILAN Armendariz at bedside during shift change. Upon assessment at this time patient is resting comfortably in bed, asleep but arouses easily. Patient denies any pain, n/v or SOB. Patient on 2 L oxygen. Coello to dependant drainage with yellow cloudy urine present. Severe bruising to left arm from where fistula infilterated. Plan is for patient to get a dialysis catheter tomorrow and eventually go to rehab at [facility]. No other needs reported/observed.
[2019-07-19] VITALS (7 sets, daily range): BP systolic 90–121; BP diastolic 33–76; PULSE 70–96; TEMP 97.5–98.3
--- NOTE | 2019-07-19 02:57 | NUR ---
Patient asleep, respirations adequate. No needs observed.
--- NOTE | 2019-07-19 08:07 | NUR ---
AM cares completed at this time. Patient up to chair per her request. laboratory analyst called. Procedure will be done at 12ish today for dialysis cath. Patient given reminders as to why she cant have anything to eat or drink. She is alert and oriented x 3 but is forgetful. Skin w/d. Color pink. Lungs diminshed in bases bilaterally. Resp even/unlabored. Patient reports coughing up white/thin colored sputum. Denies any shortness of air. On 02 at 2L/NC. HR strong/regular. Abd soft with bowel sounds x 4 quads. Cath care completed. Coello clear yellow urine. Coello to obtain accurate i/o per Dr. Calderon. Coccyx area reddened; small excoration and noted 3 1 cm stage II ulcers noted. PPP. No edema this AM. Patient c/o itchiness on legs. Lotion applied. Right leg has small amount of reddness. Heels slightly redded. Will elevated on pillow while in bed. No open areas noted. Patient does c/o pain to right outer heel. INT to right arm flushes well. No other needs at this time. Call light in place. Fall percautions intact
--- NOTE | 2019-07-19 10:45 | NUR ---
Patient has been up to the chair this AM. Family in at bedside. Noted that patient's urine is slight pink tinged. Will continue to monitor.
--- NOTE | 2019-07-19 12:30 | NUR ---
Consent signed for placement of IJ Dialysis cath today. Patient's leonerMONIKA signed consent. Questions answered
--- NOTE | 2019-07-19 12:55 | NUR ---
Patient left the floor at this time for dialysis cath placement
--- NOTE | 2019-07-19 13:03 | NUR ---
SEE MERGE FOR MEDICATION ADMINISTRATION TIMES AND INTRA AND POST SEDATION ASSESSMENTS.
--- NOTE | 2019-07-19 13:51 | NUR ---
Patient has recieved IJ Dialysis Catheter. Patient will now go to dialysis.
[2019-07-19 14:51] LABS: BASO % 0.5 % (0.0-2.0); EOS # 0.5 (0.0-0.7); EOS % 8.4 % (0-4.0); GRAN # 4.3 (1.4-6.5); GRAN % 70.3 % (42.2-75.2); LYMPH % 15.7 % (20.0-51.0); MEAN CELL VOLUME 103 fl (80.0-100.0); MEAN CORPUSCULAR HGB CONC 30 g/dl (33.0-37.0); MEAN PLATELET VOLUME 11.9 fl (7.4-10.4); MONO # 0.3 (0.1-0.6); MONO % 4.8 % (1.7-9.3); PLATELET COUNT 104 K/mm3 (130-400); RED BLOOD COUNT 2.93 M/mm3 (4.10-5.30); REDCELL DISTRIBUTION WIDTH-CV 17.3 % (11.5-14.5)
[2019-07-19 14:52] LABS: HEMATOCRIT 30.3 % (37.0-47.0); HEMOGLOBIN 9.1 g/dl (12.5-16.0); MEAN CORPUSCULAR HEMOGLOBIN 31 pg (27.0-31.0)
[2019-07-19 14:57] LABS: CALCIUM 9.5 mg/dL (8.4-10.2); CREATININE, serum 2.71 (0.52-1.25); POTASSIUM 3.8 mmol/L (3.4-5.0)
--- NOTE | 2019-07-19 15:41 | NUR ---
ELEONORA contacted and faxed updates to [facility], [facility], and [facility] [employer]. SW attempted to contact the patient's daughter, Tammie, to follow up on preference for SNF. SW left her a voicemail and will continue to follow.
--- NOTE | 2019-07-19 16:00 | NUR ---
The patient's daughter, Tammie, contacted ELEONORA back to inform that their preference is [facility]. ELEONORA notified Dakotah at [facility]. ELEONORA to update Lynn Muñoz and Shreya and will continue to follow.
--- NOTE | 2019-07-19 19:05 | NUR ---
Received report from day shift nurse. Patient is awake on bed, with daughter in the bedside. With Coello catheter draining tea colored urine. With INT on right had. With gauze and tape on right IJ for placement of dialysis catheter. No inflammation or bleeding noted. Patient denies any pain. Call light within reach.
--- NOTE | 2019-07-19 19:17 | NUR ---
Patient is back from dialysis and she is in bed resting with daughter at the bedside. Patient ate 40% of her dinner. Coello output 640mL. Patient received tylenol 500mg for pain.
[2019-07-20 03:11] VITALS: BP 107/36; PULSE 70; TEMP 97.5
--- NOTE | 2019-07-20 05:59 | NUR ---
Patient was just asleep the whole night. Easily awaken when giving meds. Right IJ catheter covered with gauze. No drainage or bleeding noted.
[2019-07-20 08:12] VITALS: BP 106/52; PULSE 86; TEMP 97.8
--- NOTE | 2019-07-20 11:32 | NUR ---
First visit from the dog control officer. No needs right now.
[2019-07-20 11:38] VITALS: BP 100/42; PULSE 90; TEMP 97.4
--- NOTE | 2019-07-20 11:57 | NUR ---
Assessment completed, alert/oriented, vital signs stable, denies pain or discomfort, lungs diminished/ titrated off of oxygen and sats are 95% on room air, heart RRR/ disatl pulses are palpable, patient has several small open areas to sacrum/coccyx area, encouraging positon changes to off load pressure, discharge planning in the works, diaylsis tommorow and possible repeat thoracetesis, family present, has also been in and discussed plan of care with them
[2019-07-20 13:24] LABS: BASO % 0.4 % (0.0-2.0); EOS # 0.5 (0.0-0.7); EOS % 7.4 % (0-4.0); GRAN # 5.1 (1.4-6.5); LYMPH # 1.1 (1.2-3.4); LYMPH % 15.2 % (20.0-51.0); MEAN CELL VOLUME 104 fl (80.0-100.0); MEAN CORPUSCULAR HGB CONC 30 g/dl (33.0-37.0); MEAN PLATELET VOLUME 11.9 fl (7.4-10.4); MONO # 0.4 (0.1-0.6); MONO % 5.7 % (1.7-9.3); PLATELET COUNT 115 K/mm3 (130-400); RED BLOOD COUNT 3.11 M/mm3 (4.10-5.30); REDCELL DISTRIBUTION WIDTH-CV 17.6 % (11.5-14.5)
[2019-07-20 13:31] LABS: HEMOGLOBIN 9.7 g/dl (12.5-16.0); MEAN CORPUSCULAR HEMOGLOBIN 31 pg (27.0-31.0)
[2019-07-20 13:32] LABS: HEMATOCRIT 32.2 % (37.0-47.0)
[2019-07-20 13:35] LABS: CREATININE, serum 1.49 (0.52-1.25); POTASSIUM 3.8 mmol/L (3.4-5.0)
--- NOTE | 2019-07-20 14:08 | NUR ---
ELEONORA collaborated with the patient's attending, Dr. Calderon. Dr. Calderon reports that the patient may be able to discharge tomorrow, pending procedure or . ELEONORA notified and faxed updates to Dakotah at [facility]. Dakotah reports that they have received approval from the patient's insurance. ELEONORA to inform the patient and family and will continue to follow.
--- NOTE | 2019-07-20 16:36 | NUR ---
Patient just arrived back to Medical floor from diaylsis at this time
[2019-07-20 17:25] VITALS: BP 109/46; PULSE 92; TEMP 98.3
--- NOTE | 2019-07-20 19:10 | NUR ---
Received report from day shift nurse, Jp. Patient is awake on bed. No IFC and O2 attached. With INT on right hand. Patient denies pain. Changed diapers and did perineal care.
[2019-07-20 19:33] VITALS: BP 105/67; PULSE 93; TEMP 97.5
[2019-07-20 23:28] VITALS: BP 107/48; PULSE 89; TEMP 97.9
[2019-07-21 03:33] VITALS: BP 105/56; PULSE 85; TEMP 97.9
--- NOTE | 2019-07-21 04:21 | NUR ---
Changed patient's diapers and noted to have a small amount of urine. Patient states her right foot hurts whenever it is being touched. She requested for application of ointment for dry skin on her right foot.
[2019-07-21 08:47] VITALS: BP 109/54; PULSE 68; TEMP 97.8
--- NOTE | 2019-07-21 10:25 | NUR ---
Assessment completed, alert/oriented, vital signs stable, denies pain or discomfort, she is sitting at bedside eating breakfast, arellano cath was removed yesterday and she has sence been incontinent in her briefs, CXR done to eval for possible need of repeart thoracentesis, discharge planning for [facility] today
[2019-07-21 12:20] VITALS: BP 99/41; PULSE 71; TEMP 97.7
[2019-07-21 16:54] VITALS: BP 101/47; PULSE 76; TEMP 97.5
[2019-07-21 20:00] VITALS: BP 110/56; PULSE 73; TEMP 98
--- NOTE | 2019-07-21 20:00 | NUR ---
Report received. 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 Assessment complete. VS stable. Denies pain. Bilat lower extremity edema +1. O2 sat 94-96 on room air. Denies shortness of breath/pain/nausea. Right wrist INT flushes without difficulty. Plan of care discussed for this shift to include HS meds. Denies questions/concerns. Call light in reach. Encouraged to call for needs. Will monitor.
[2019-07-22] VITALS: BP 112/56; PULSE 64; TEMP 98
[2019-07-22 02:22] VITALS: BP 116/58; PULSE 80; TEMP 98.3
[2019-07-22 08:08] VITALS: BP 97/45; PULSE 87; TEMP 98.5
[2019-07-22 09:06] LABS: BASO % 0.5 % (0.0-2.0); EOS # 0.6 (0.0-0.7); EOS % 8.1 % (0-4.0); GRAN # 5.1 (1.4-6.5); GRAN % 65.4 % (42.2-75.2); LYMPH # 1.5 (1.2-3.4); LYMPH % 19.6 % (20.0-51.0); MEAN CELL VOLUME 104 fl (80.0-100.0); MEAN CORPUSCULAR HGB CONC 29 g/dl (33.0-37.0); MEAN PLATELET VOLUME 11.5 fl (7.4-10.4); MONO # 0.5 (0.1-0.6); MONO % 5.9 % (1.7-9.3); PLATELET COUNT 132 K/mm3 (130-400); RED BLOOD COUNT 3.12 M/mm3 (4.10-5.30); REDCELL DISTRIBUTION WIDTH-CV 17.6 % (11.5-14.5)
[2019-07-22] MEDS ORDERED: CAPOTEN 12.512.5 MG PO (09:06)
[2019-07-22] MEDS ORDERED: CALPHRON667 MG PO (09:07)
[2019-07-22 09:16] LABS: CALCIUM 9.3 mg/dL (8.4-10.2); CREATININE, serum 1.7 (0.52-1.25)
[2019-07-22 09:22] LABS: HEMATOCRIT 32.3 % (37.0-47.0); HEMOGLOBIN 9.5 g/dl (12.5-16.0); MEAN CORPUSCULAR HEMOGLOBIN 30 pg (27.0-31.0)
--- NOTE | 2019-07-22 09:25 | NUR ---
The patient is to discharge today, 07/22, to [facility] for a skilled stay. Transportation was scheduled for 1400, via [facility]. ELEONORA informed the patient's RN and her daughter (Tammie), via phone. They were both in agreeance to the time. ELEONORA also explained the IM form to Tammie. Tammie verbalized understanding and gave SW her verbal consent. No additional needs at this time.
--- NOTE | 2019-07-22 15:30 | NUR ---
IV REMOVED WITHOUT ISSUE. [facility] PERSONELLE HERE TO TAKE PT TO FACILITY. THIS NURSE GAVE REPORT TO [facility] NURSE VIA PHONE CALL. ALL QUESTIONS ANSWERED.
== END 2019-07-22 15:30 | DRG 291 ==
LOC: MEDICAL 15:57
PROVIDERS: Internal Medicine Pulmonary Disease; ADMIT Internal Medicine Nephrology
PROC: 5A1D70Z Performance of Urinary Filtration, Intermittent, Less than 6 Hours Per Day (ICD-10-PCS; principal; 2019-07-10)
PROC: 0W993ZZ Drainage of Right Pleural Cavity, Percutaneous Approach (ICD-10-PCS; 2019-07-10)
PROC: 0W993ZZ Drainage of Right Pleural Cavity, Percutaneous Approach (ICD-10-PCS; 2019-07-11)
PROC: 0W9B3ZZ Drainage of Left Pleural Cavity, Percutaneous Approach (ICD-10-PCS; 2019-07-15)
PROC: 0W9B3ZZ Drainage of Left Pleural Cavity, Percutaneous Approach (ICD-10-PCS; 2019-07-17)
PROC: 0JH63XZ Insertion of Tunneled Vascular Access Device into Chest Subcutaneous Tissue and Fascia, Percutaneous Approach (ICD-10-PCS; 2019-07-19)
PROC: 02H633Z Insertion of Infusion Device into Right Atrium, Percutaneous Approach (ICD-10-PCS; 2019-07-19)
DX: I13.2 Hypertensive heart and chronic kidney disease with heart failure and with stage 5 chronic kidney disease, or end stage renal disease (principal); I50.23 Acute on chronic systolic (congestive) heart failure; N18.6 End stage renal disease; N25.81 Secondary hyperparathyroidism of renal origin; L03.115 Cellulitis of right lower limb; L03.116 Cellulitis of left lower limb; J90 Pleural effusion, not elsewhere classified; I48.20 Chronic atrial fibrillation, unspecified; N18.4 Chronic kidney disease, stage 4 (severe); E66.9 Obesity, unspecified; D63.1 Anemia in chronic kidney disease; I08.1 Rheumatic disorders of both mitral and tricuspid valves; E03.9 Hypothyroidism, unspecified; E87.5 Hyperkalemia; R09.02 Hypoxemia; H91.90 Unspecified hearing loss, unspecified ear; I45.10 Unspecified right bundle-branch block; L89.899 Pressure ulcer of other site, unspecified stage; Z96.653 Presence of artificial knee joint, bilateral; Z99.2 Dependence on renal dialysis; Z79.01 Long term (current) use of anticoagulants; Z87.891 Personal history of nicotine dependence; Z88.0 Allergy status to penicillin; Z88.1 Allergy status to other antibiotic agents; I95.9 Hypotension, unspecified
CPT/HCPCS: J1644; J2250; J3010; J3370; J7030; J7050; Q5106

== ENCOUNTER → 2019-10-20 | Outpatient (CLI) | payer MEDICARE ==
[~2019-10-20] MED LIST changes: +CALPHRON667 MG PO; +CAPOTEN 12.512.5 MG PO; +LASIX 40MG TABL40 MG PO; +SYNTHROID0.125 MG/T PO
== END ==
LOC: ZCOL.LAB 16:27
DX: Z20.828 Contact with and (suspected) exposure to other viral communicable diseases (principal)